=== PATIENT | female | born 1975 | race Hispanic/Latino ===

== ENCOUNTER 2018-06-26 08:58 | Day surgery (SDC) | payer OTHER ==
[~2018-06-26 08:58] MED LIST: ANCEF/STERILE WATER 2 GM/20 ML 2 GM/20 ML SYRINGE IV NR; NACL 0.9% 1000 ML 1,000 ML IV SCH
[2018-06-26 10:02] LABS: Basophils # (Auto) 0.1 K/mm3 (0.0-0.1); Basophils % (Auto) 0.8 % (0.0-1.8); Eosinophils # (Auto) 0.5 K/mm3 (0.0-0.4); Eosinophils % (Auto) 4.8 % (0.0-4.3); Hemoglobin 12.6 gm/dl (10.1-14.3); Lymphocytes # (Auto) 2.3 K/mm3 (1.2-5.4); Lymphocytes % (Auto) 21.7 % (13.4-35.0); Mean Corpuscular HGB Conc 35 % (30-34); Mean Corpuscular Hemoglobin 30 pg (28-32); Mean Corpuscular Volume 87 fl (79-97); Monocytes # (Auto) 0.6 K/mm3 (0.0-0.8); Monocytes % (Auto) 5.2 % (0.0-7.3); Platelet Count 321 K/mm3 (140-440); Red Blood Count 4.16 M/mm3 (3.65-5.03); Red Cell Distribution Width 14.5 % (13.2-15.2)
[2018-06-26 10:12] LABS: INR 0.93 (0.87-1.13)
[2018-06-26 10:13] LABS: Partial Thromboplastin Time 25.4 Sec. (24.2-36.6)
[2018-06-26 10:39] LABS: BUN/Creatinine Ratio 22; Blood Urea Nitrogen 13 mg/dL (7-17); Calcium 9.4 mg/dL (8.4-10.2); Hemolysis Index 24
[2018-06-26] MEDS ORDERED: NORCO 5/325 PO ONE (10:43)
[2018-06-26] MEDS ORDERED: ZOFRAN IV ONE (10:44)
[2018-06-26] MEDS ORDERED: NORCO 5/325 ONE (10:46)
[2018-06-26] MEDS ORDERED: NACL 0.9% 500 ML IR ONE (12:13)
[2018-06-26] MEDS ORDERED: XYLOCAINE 2% INFILTRATI ONE (12:14)
[2018-06-26] MEDS ORDERED: NACL 0.9% 250ML 0 ML ONE (12:14)
[2018-06-26] MEDS ORDERED: LEVAQUIN 500MG/100ML 500 MG/100 ML BAG IV ONE (12:14)
[2018-06-26] MEDS: VERSED ONE ×2 (13:24→13:38)
[2018-06-26] MEDS: SUBLIMAZE ONE ×2 (13:24→13:30)
--- NOTE | 2018-06-26 14:03 | Short Stay Summary ---
Short Stay Documentation Date of service: 06/26/18 - History Principal diagnosis: left hydronephrosis Past Medical History: other (left renal staghorn) Past Surgical History: Other (left ureteral stent) Social history: no significant social history - Allergies and Medications Current Medications: Allergies lisinopril Allergy (Severe, Verified 06/26/18 09:32) Swelling morphine Allergy (Intermediate, Verified 06/26/18 09:32) Vomiting Penicillins Allergy (Unknown, Verified 06/26/18 09:32) Unknown theophylline Allergy (Unknown, Verified 06/26/18 09:32) Unknown Home Medications Medication Instructions Recorded Confirmed Last Taken Type Amlodipine Besylate [Norvasc] 5 mg PO BID 06/26/18 06/26/18 06/26/18 07:00 History 5mg Chlorthalidone 25 mg PO DAILY 06/26/18 06/26/18 06/25/18 History 25mg Citalopram [Celexa] 20 mg PO HS 06/26/18 06/26/18 06/25/18 History 20mg Estradiol 1 tab PO DAILY 06/26/18 06/26/18 06/25/18 History 1 tab HYDROcodone/ACETAMINOPHEN 1 tab PO Q8H PRN 06/26/18 06/26/18 06/25/18 History [Hydrocodone-Acetamin 5-325 mg] 1 tab Nitrofurantoin Gila/M-Cryst 100 mg PO BID 06/26/18 06/26/18 06/26/18 07:00 History [Macrobid CAP] 100mg Active Medications Cefazolin Sodium (Ancef/Sterile Water 2 Gm/20 Ml) 2 gm in 20 mls @ 80 mls/hr IV PREOP NR; Protocol Stop: 06/26/18 23:59 Sodium Chloride (Nacl 0.9% 1000 Ml) 1,000 mls @ 42 mls/hr IV DIRECT JACLYN Last Admin: 06/26/18 10:01 Dose: 42 mls/hr - Physical exam General appearance: no acute distress HEENT: Atraumatic Lungs: Normal air movement Breasts: deferred Heart: Regular rate Gastrointestinal: normal Female Genitourinary: deferred Rectal Exam: deferred Extremities: Full ROM Neurological: Normal gait - Brief post op/procedure progress note Date of procedure: 06/26/18 Pre-op diagnosis: left hydronephrosis Post-op diagnosis: same Procedure: left nephrostomy tube Anesthesia: local Surgeon: YANICK TRENT Estimated blood loss: minimal Pathology: none Specimen disposition: to lab Condition: stable - Disposition Condition at discharge: Good Disposition: [id number] TO HOME OR SELFCARE Short Stay Discharge Plan Activity: advance as tolerated Weight Bearing Status: Weight Bear as Tolerated Diet: regular Wound: keep clean and dry, per your surgeon's advice Follow up with: PRIMARY CAREMD [Primary Care Provider] - 7 Days
--- NOTE | 2018-06-26 14:07 | Operative Report ---
Operative Report Operative Report: Exam: Ultrasound and fluoroscopic guided placement of left nephrostomy tube Clinical indication: Left hydronephrosis and left staghorn calculus Date: 06/26/2018 Procedure: Following an explanation of the risks, benefits and alternatives; written informed consent was obtained. The patient was brought the angiographic suite and placed in prone position on the examination table. Initial ultrasound evaluation of her left kidney demonstrated moderate left hydronephrosis and multiple echogenic stones. The patient's left back and flank were prepped and draped in the usual sterile fashion. 1% lidocaine was used for anesthesia. Under ultrasound guidance, a 15 cm 21-gauge needle was advanced into a posterior middle calyx. Gentle injection of contrast document appropriate positioning. A 0.018 guidewire was then advanced and coiled within the renal pelvis. The needle was removed and AccuStick transition dilator placed over the guidewire and advanced to the renal pelvis. The 0.018 guidewire was exchanged for a 0.035 Glidewire and attempts to manipulate passes staghorn calculus were unsuccessful. The transition dilator was removed and a 4 Pashto vertebral catheter placed over the guidewire. Additional attempts to manipulate passes staghorn calculus were unsuccessful secondary to the hydronephrotic state of the kidney. The guidewire was therefore coiled within the renal pelvis and the vertebral catheter removed. Following serial dilation over the guidewire under fluoroscopy, an 8 Pashto pigtail catheter was placed over the guidewire under fluoroscopy and advanced to position the pigtail within the most dilated portion of the kidney. There is prompt return of purulent fluid. A sample sent for laboratory analysis. The catheter was securely fasten the skin surface using 2-0 Ethilon suture and a StatLock device. A sterile dressing was then applied. The catheter was then placed to dependent drainage. The patient tolerated the procedure well. There were no immediate post procedure complications. Conscious sedation was performed under the guidance of radiologic nursing. Continuous cardiopulmonary monitoring was utilized. Impression: Ultrasound and fluoroscopic guided placement of 8 Pashto left left nephrostomy tube
[2018-06-26] MEDS ORDERED: DILAUDID IV ONE (14:20)
[2018-06-26] MEDS ORDERED: DILAUDID ONE (14:26)
[2018-06-26 16:16] VITALS: BP 110/74
== END 2018-06-26 16:32 | disposition home or self-care (01) ==
LOC: CATHLABREC 08:58
PROVIDERS: ATTEND Radiology Diagnostic Radiology
DX: N13.2 Hydronephrosis with renal and ureteral calculous obstruction (principal); Z88.0 Allergy status to penicillin; Z88.5 Allergy status to narcotic agent; Z88.8 Allergy status to other drugs, medicaments and biological substances; I10 Essential (primary) hypertension; Z90.710 Acquired absence of both cervix and uterus; Z87.442 Personal history of urinary calculi; F41.9 Anxiety disorder, unspecified; Z87.440 Personal history of urinary (tract) infections; Z80.8 Family history of malignant neoplasm of other organs or systems; Z83.3 Family history of diabetes mellitus; Z98.890 Other specified postprocedural states; Z87.891 Personal history of nicotine dependence; Z79.899 Other long term (current) drug therapy; Z79.01 Long term (current) use of anticoagulants
CPT/HCPCS: 36415; 50432; 76937; 80048; 85025; 85610; 85730; 87116; 96374; 96375; 99156; 99157; C1729; C1751; C1769; J1170; J1956; J2250; J2405; J3010; J7030; J7050; Q9967

== ENCOUNTER 2018-07-20 06:26 | Emergency (ER) | payer OTHER | END 2018-07-20 07:00 | disposition left against medical advice (07) | LOC: ED 06:26 | DX: T85.9XXA Unspecified complication of internal prosthetic device, implant and graft, initial encounter (principal); Z53.21 Procedure and treatment not carried out due to patient leaving prior to being seen by health care provider ==